=== PATIENT | male | born 1960 | race Two or more races ===

== ENCOUNTER 2022-10-28 11:42 | Inpatient (IN) | payer OTHER ==
[~2022-10-28] VITALS: Ht 162.6 cm; Wt 66.2 kg
[2022-10-28] MEDS ORDERED: GLUMETZA1000 MG (12:34)
[2022-10-28] MEDS ORDERED: CRESTOR5 MG PO (12:34)
[2022-10-28] MEDS ORDERED: LOSARTAN POTAS100 MG PO (12:34)
[2022-10-28] MEDS ORDERED: GLUMETZA500 MG (12:34)
[2022-10-28] MEDS ORDERED: GEMFIBROZIL600 MG PO (12:35)
[2022-11-03] MEDS ORDERED: Lopid PO (17:31)
[2022-11-03] MEDS ORDERED: LOSARTAN POTAS100 MG PO (17:31)
[2022-11-03] MEDS ORDERED: METFORMIN HCL1000 MG PO (17:31)
[2022-11-03] MEDS ORDERED: PROTONIX40 MG PO (17:31)
[2022-11-03] MEDS ORDERED: POM (MEDICAMENTO EN PO (17:31)
[2022-11-03] MEDS ORDERED: INTEGRA PLUS C1 EACH PO (17:31)
== END 2022-11-03 18:05 | disposition home or self-care (01) | DRG 812 ==
LOC: ER 11:42 → MEDI 22:24
PROVIDERS: ADMIT Internal Medicine; ATTEND Internal Medicine
PROC: BW21YZZ Computerized Tomography (CT Scan) of Abdomen and Pelvis using Other Contrast (ICD-10-PCS; 2022-10-28)
PROC: 30233N1 Transfusion of Nonautologous Red Blood Cells into Peripheral Vein, Percutaneous Approach (ICD-10-PCS; principal; 2022-10-29)
PROC: 3E0F7SF Introduction of Other Gas into Respiratory Tract, Via Natural or Artificial Opening (ICD-10-PCS; 2022-10-29)
PROC: 0DJ08ZZ Inspection of Upper Intestinal Tract, Via Natural or Artificial Opening Endoscopic (ICD-10-PCS; 2022-11-01)
PROC: BW30YZZ Magnetic Resonance Imaging (MRI) of Abdomen using Other Contrast (ICD-10-PCS; 2022-11-01)
DX: D64.89 Other specified anemias (principal); I85.00 Esophageal varices without bleeding; K76.6 Portal hypertension; D61.818 Other pancytopenia; R16.1 Splenomegaly, not elsewhere classified; K70.9 Alcoholic liver disease, unspecified; E11.9 Type 2 diabetes mellitus without complications; I10 Essential (primary) hypertension; D69.6 Thrombocytopenia, unspecified; F10.20 Alcohol dependence, uncomplicated; K31.89 Other diseases of stomach and duodenum; E78.1 Pure hyperglyceridemia; Y90.9 Presence of alcohol in blood, level not specified; Z79.84 Long term (current) use of oral hypoglycemic drugs; Z20.822 Contact with and (suspected) exposure to COVID-19; Z79.4 Long term (current) use of insulin
CPT/HCPCS: 74182